=== PATIENT | male | born 1970 | race Hispanic/Latino ===

== ENCOUNTER 2018-07-07 17:54 | Emergency (ER) | payer BC ==
[2018-07-07 17:54] VITALS: BMI 31.8
[2018-07-07 18:02] VITALS: BP 143/90; PULSE 67; RESP 18; TEMP 98.3; O2SAT 97
--- NOTE | 2018-07-07 19:02 | ED PDOC ---
Arrival/HPI - General Chief Complaint: Upper Extremity Problem/Injury Time Seen by Provider: 07/07/18 18:01 Historian: Patient - History of Present Illness Narrative History of Present Illness (Text): 07/07/18 19:08 48 year old male, whose past medical history includes hypertension, who presents to the Emergency department complaining of rt bicep pain x today. Patient states he was moving a washing machine, when he felt a pop in the right bicep. Patient is able to move and extend rt arm. Patient denies any numbness, weakness, back pain, neck pain, abdominal pain, or any other complaints. PMD: Dr. Noguera Time/Duration: Prior to Arrival Symptom Onset: Gradual Activities at Onset: Light Context: Home Past Medical History - Provider Review Nursing Documentation Reviewed: Yes - Tetanus Immunization Tetanus Immunization: Unknown - Past Medical History Past Medical History: No Previous - Cardiac Hx Hypertension: Yes - Pulmonary Hx Respiratory Disorders: No - Neurological Hx Neurological Disorder: No - HEENT Hx HEENT Disorder: No - Renal Hx Renal Disorder: No - Endocrine/Metabolic Hx Endocrine Disorders: No - Hematological/Oncological Hx Blood Disorders: No - Integumentary Hx Dermatological Disorder: No - Musculoskeletal/Rheumatological Hx Musculoskeletal Disorders: No - Gastrointestinal Hx Gastrointestinal Disorders: No - Genitourinary/Gynecological Hx Genitourinary Disorders: No - Psychiatric Hx Depression: No Hx Emotional Abuse: No Hx Physical Abuse: No Hx Substance Use: No - Surgical History Hx Appendectomy: Yes - Suicidal Assessment Feels Threatened In Home Enviroment: No Family/Social History - Physician Review Nursing Documentation Reviewed: Yes Family/Social History: Unknown Family HX Smoking Status: Never Smoked Hx Alcohol Use: Yes Frequency of alcohol use: Socially Hx Substance Use: No Hx Substance Use Treatment: No Allergies/Home Meds Allergies/Adverse Reactions: Allergies No Known Allergies Allergy (Verified 07/07/18 18:01) Home Medications: Home Meds Medication Instructions Recorded Confirmed Lisinopril [Prinivil] 20 mg PO DAILY 07/07/18 07/07/18 Review of Systems - Physician Review All systems were reviewed & negative as marked: Yes - Review of Systems Constitutional: Normal Eyes: Normal ENT: Normal Respiratory: Normal. absent: SOB, Cough Cardiovascular: Normal. absent: Chest Pain Gastrointestinal: Normal. absent: Abdominal Pain, Diarrhea, Nausea, Vomiting Genitourinary Male: Normal. absent: Frequency, Hematuria Musculoskeletal: Other (rt bicep pain). absent: Back Pain, Neck Pain Skin: Normal. absent: Rash Neurological: Normal. absent: Headache, Dizziness Endocrine: Normal. absent: Polyuria, Polydipsia Hemo/Lymphatic: Normal Psychiatric: Normal Physical Exam Vital Signs Reviewed: Yes Vital Signs Temp Pulse Resp BP Pulse Ox 07/07/18 18:02 98.3 F 67 18 143/90 97 Temperature: Afebrile Blood Pressure: Normal Pulse: Regular Respiratory Rate: Normal Appearance: Positive for: Well-Appearing, Non-Toxic, Comfortable Pain Distress: None Mental Status: Positive for: Alert and Oriented X 3 - Systems Exam Head: Present: Atraumatic, Normocephalic Pupils: Present: PERRL Extroacular Muscles: Present: EOMI Conjunctiva: Present: Normal Mouth: Present: Moist Mucous Membranes Neck: Present: Normal Range of Motion Respiratory/Chest: Present: Clear to Auscultation, Good Air Exchange. No: Respiratory Distress, Accessory Muscle Use Cardiovascular: Present: Regular Rate and Rhythm, Normal S1, S2. No: Murmurs Abdomen: No: Tenderness, Distention, Peritoneal Signs Back: Present: Normal Inspection Upper Extremity: Present: Normal ROM, NORMAL PULSES, Tenderness (rt bicep), Other (pt is able to extend and flex with resistence). No: Cyanosis, Edema Lower Extremity: Present: Normal Inspection, Neurovascularly Intact. No: Edema Neurological: Present: GCS=15, CN II-XII Intact, Speech Normal, Motor Func Gross ly Intact, Normal Sensory Function Skin: Present: Warm, Dry, Normal Color. No: Rashes Psychiatric: Present: Alert, Oriented x 3, Normal Insight, Normal Concentration Medical Decision Making ED Course and Treatment: 07/07/18 19:12 Impression: 48 year old male presents to the emergency department complaining of rt bicep pain. Differential Diagnosis: Rt bicep pain r/o tear Plan: -- CT RUE -- Ibuprofen -- Xray rt elbow -- Reassess and disposition Progress Notes: XRay with no acute fracture. Pt signed out to Dr. Cooper pending CT results, reevaluation, and disposition. - RAD Interpretation Radiology Orders: 07/07/18 18:12 ELBOW RIGHT 3 VIEWS ROUTINE [RAD] Stat 07/07/18 18:13 EXT UPPER W/O CONTRAST RIGHT [CT] Stat - Medication Orders Current Medication Orders: Discontinued Medications Ibuprofen (Motrin Tab) 800 mg PO STAT STA Stop: 07/07/18 18:15 Last Admin: 07/07/18 18:42 Dose: 800 mg MAR Pain/Vitals Document 07/07/18 18:42 OCS (Rec: 07/07/18 18:43 OCS [id number]) Pain Reassessment Is This A Pain ReAssessment? Yes Sleep Is patient sleeping during reassessment? No Presence of Pain Presence of Pain Yes Pain Scale Used Protocol: PSCALES Pain Scale Used Numeric Location Left, Right or Bilateral Right Upper or Lower Upper Pain Location Body Site Arm Description Constant Intensity 6 Scale Used Numeric Aggravating Factors ADL's - Scribe Statement The provider has reviewed the documentation as recorded by the Scribe Romina Reynoso All medical record entries made by the Scribe were at my direction and personally dictated by me. I have reviewed the chart and agree that the record accurately reflects my personal performance of the history, physical exam, medical decision making, and the department course for this patient. I have also personally directed, reviewed, and agree with the discharge instructions and disposition. Disposition/Present on Arrival - Present on Arrival Any Indicators Present on Arrival: No History of DVT/PE: No History of Uncontrolled Diabetes: No Urinary Catheter: No History of Decub. Ulcer: No History Surgical Site Infection Following: None - Disposition Have Diagnosis and Disposition been Completed?: Yes Diagnosis: Biceps strain Disposition Time: 19:25 Condition: GOOD Referrals: Pam Noguera MD [Primary Care Provider] - Follow up with primary Forms: [employer] (Hebrew)
--- NOTE | 2018-07-07 19:33 | ED PDOC ---
Physical Exam Vital Signs Temp Pulse Resp BP Pulse Ox 07/07/18 18:02 98.3 F 67 18 143/90 97 - Systems Exam Upper Extremity: Present: Other (tenderness and swelling antecubital fossa). No: Cyanosis, Edema Medical Decision Making ED Course and Treatment: 07/07/18 19:30 Case endorsed to me by Dr. Salazar pending CT results, reevaluation, and disposition. 07/07/18 19:35 CT RUE reviewed, shows: Impression: Technically limited study. Bicipital tendon appears with the bicipital groove. Very limited visualization of the biceps shows no obvious mass or fluid collection. Correlation with plain radiographs and orthopedic consultation recommended. 07/07/18 19:43 case d/w dr harrison will follwo up in office on monday - RAD Interpretation Radiology Orders: 07/07/18 18:12 ELBOW RIGHT 3 VIEWS ROUTINE [RAD] Stat 07/07/18 18:13 EXT UPPER W/O CONTRAST RIGHT [CT] Stat - Medication Orders Current Medication Orders: Discontinued Medications Ibuprofen (Motrin Tab) 800 mg PO STAT STA Stop: 07/07/18 18:15 Last Admin: 07/07/18 18:42 Dose: 800 mg MAR Pain/Vitals Document 07/07/18 18:42 OCS (Rec: 07/07/18 18:43 OCS [facility] [id number]) Pain Reassessment Is This A Pain ReAssessment? Yes Sleep Is patient sleeping during reassessment? No Presence of Pain Presence of Pain Yes Pain Scale Used Protocol: PSCALES Pain Scale Used Numeric Location Left, Right or Bilateral Right Upper or Lower Upper Pain Location Body Site Arm Description Constant Intensity 6 Scale Used Numeric Aggravating Factors ADL's - Scribe Statement The provider has reviewed the documentation as recorded by the Scribe Romina Reynoso All medical record entries made by the Scribe were at my direction and personally dictated by me. I have reviewed the chart and agree that the record accurately reflects my personal performance of the history, physical exam, medical decision making, and the department course for this patient. I have also personally directed, reviewed, and agree with the discharge instructions and disposition. Disposition/Present on Arrival - Present on Arrival Any Indicators Present on Arrival: No History of DVT/PE: No History of Uncontrolled Diabetes: No Urinary Catheter: No History of Decub. Ulcer: No History Surgical Site Infection Following: None - Disposition Have Diagnosis and Disposition been Completed?: Yes Diagnosis: Biceps strain Disposition: HOME/ ROUTINE Disposition Time: 19:44 Condition: GOOD Discharge Instructions (ExitCare): Muscle Strain (DC) Referrals: Pam Noguera MD [Primary Care Provider] - Follow up with primary Luis Caraballo DO [Staff Provider] - Follow up with primary Forms: [employer] (Croatian)
--- NOTE | 2018-07-08 09:49 | RAD ---
Date of service: 07/07/2018 PROCEDURE: Radiographs of the right elbow. HISTORY: bicep pain after lifting COMPARISON: No prior. FINDINGS: BONES: Normal. No fracture. JOINTS: Normal. No osteoarthritis. SOFT TISSUES: Normal. JOINT EFFUSION: None. OTHER FINDINGS: None. IMPRESSION: Unremarkable radiographs of the right elbow.
--- NOTE | 2018-07-08 11:51 | CT ---
Date of service: 07/07/2018 PROCEDURE: CT of the right upper extremity without contrast HISTORY: bicep pain after lefting r/o tear COMPARISON: TECHNIQUE: Radiation dose: Total exam DLP = 935.19 mGy-cm. This CT exam was performed using one or more of the following dose reduction techniques: Automated exposure control, adjustment of the mA and/or kV according to patient size, and/or use of iterative reconstruction technique. FINDINGS: CT is less sensitive than MRI in the detection of distal biceps tendon tear. The biceps tendon can be seen within the bicipital groove. There is no evidence of muscular hematoma. There are no bony abnormalities seen The report concurs with the preliminary [facility] report IMPRESSION: Negative study. CT is limited in evaluation of the distal biceps tendon
== END 2018-07-07 20:00 | disposition home or self-care (01) ==
LOC: ED 17:54
DX: S46.211A Strain of muscle, fascia and tendon of other parts of biceps, right arm, initial encounter (principal); X50.0XXA Overexertion from strenuous movement or load, initial encounter; Y92.9 Unspecified place or not applicable

== ENCOUNTER 2018-07-17 05:43 | Day surgery (SDC) | payer BC ==
[2018-07-13 12:00] VITALS: BMI 41.2
[2018-07-17] MEDS ORDERED: Bupivacaine 0.5% 50 ML IJ ONE ×2 (10:08→11:10)
[2018-07-17] MEDS ORDERED: HYDROmorphone 0.5 mg/0.5 ml ISec IVP PRN (10:18)
[2018-07-17] MEDS ORDERED: Lactated Ringer's 1,000 ML IV SCH (10:30)
[2018-07-17] MEDS ORDERED: Propofol 10 mg/ml Inj (20 ML) ONE (10:35)
[2018-07-17] MEDS ORDERED: Midazolam 2 MG/2 ML VIAL ONE (10:35)
[2018-07-17] MEDS ORDERED: Succinylcholine 200 mg/10 ml Inj IV ONE (10:36)
[2018-07-17] MEDS ORDERED: Etomidate 20 mg/10ml Inj IV ONE (10:36)
[2018-07-17] MEDS ORDERED: CeFAZolin 1 gm in NS 100ml IVPB ONE (10:49)
[2018-07-17] MEDS ORDERED: Rocuronium 10 mg/ml (5 ml) ONE (10:51)
[2018-07-17] MEDS ORDERED: ePHEDrine 50 mg/ml Inj ONE (11:45)
[2018-07-17] MEDS ORDERED: Oxycodone/Acetaminophen 5/325 mg Tab PO PRN (13:01)
--- NOTE | 2018-07-17 13:05 | PCM.SURG1 ---
Surgeon's Initial Post Op Note - Surgeon's Notes Surgeon: Fabio Baltazar MD Supervisor Mill: Carolann Salguero PA-C Type of Anesthesia: General Endo Anesthesia Administered By: Dr. Roe Pre-Operative Diagnosis: right distal biceps tear Operative Findings: see full note Post-Operative Diagnosis: same Operation Performed: right open distal biceps tendon repair Specimen/Specimens Removed: none Estimated Blood Loss: EBL {In ML}: 10 Blood Products Given: N/A Drains Used: No Drains Post-Op Condition: Fair Date of Surgery/Procedure: 07/17/18 Time of Surgery/Procedure: 13:05
[2018-07-17 13:07] VITALS: O2SAT 96
[2018-07-17] MEDS: HYDROmorphone 0.5 mg/0.5 ml ISec ONE ×2 (13:28→13:55)
[2018-07-17 13:29] VITALS: PULSE 67
[2018-07-17] MEDS ORDERED: HYDROmorphone 0.5 mg/0.5 ml ISec ONE (14:06)
[2018-07-17 14:32] VITALS: BP 110/63; RESP 18; TEMP 98.9
--- NOTE | 2018-07-18 00:01 | OP ---
PROCEDURE DATE: 07/17/2018 PREOPERATIVE DIAGNOSIS: Right distal biceps tendon rupture. POSTOPERATIVE DIAGNOSIS: Right distal biceps tendon rupture. PROCEDURE: Open right distal biceps tendon repair. SURGEON: Michael Baltazar MD NET FRONT END DEVELOPER: Dr. Baltazar was assisted by Kimberly Salguero, physician resident programs assistant. Ms. Salguero was present throughout the entire case and assisted in patient positioning, retraction and wound closure. TYPE OF ANESTHESIA: General. COMPLICATIONS: None. ESTIMATED BLOOD LOSS: 10 mL. INDICATIONS FOR PROCEDURE: This is a 48-year-old gentleman who was lifting a heavy object and sustained a right elbow injury. Clinical and MRI examination consistent with a complete full-thickness tear of the distal biceps tendon. Recommendations were for open repair. The risks, benefits, and alternatives of the procedure were discussed with the patient including the nerve damage and the possibility of the rupture and informed consent was obtained. DESCRIPTION OF PROCEDURE: After surgical site was signed and verified in the perioperative holding area, the patient was taken to the operating room and placed supine on the operating room table. After administration of general anesthesia, the patient received 2 g of Ancef IV. Tourniquet was placed about the right arm. Care was taken to make sure all bony prominences and nerves were well padded and protected. The right upper extremity was prepped and draped in the usual sterile fashion. Using a C-arm image intensifier, the bicipital tuberosity on the radius was visualized and approximately 6 cm longitudinal incision was made centered over the bicipital tuberosity. Soft tissues were gently dissected. Care was taken to retract any subcutaneous nerves and the dissection was followed down to the bicipital tuberosity. A small amount of hematoma was noted and this was evacuated and irrigated. At this point, the biceps tendon was not visualized, and using blunt dissection and finger dissection, the tendon was located several centimeters proximal to the antecubital crease. Using an Allis clamp, the tendon was grasped and could be pulled down to its insertion site. Satisfied, the free end of the tendon was debrided, and using an [employer] FiberWire, the end of the tendon was whip stitched. A button was attached to the tendon, and attention was directed back to the wound. At this point, the guide pin for socket was localized using the C-arm and the guide pin was drilled. Next, the appropriate sized reamer was then used and it was drilled unicortically to form a socket. At this point, the pin was then placed across the radius to the socket and tension was applied; however, the tendon did not appear to be seated on bone. This was confirmed using the C-arm, so a second button was placed and this was deployed into the socket and seated on the far cortex of the radius. The tendon was then tensioned down. The sutures were then tensioned from the free end of the tendon recessing it into the socket. The loop was closed by tying a knot and fixation was confirmed by pulling and applying traction on the tendon which showed firm fixation. Satisfied, the one limb of the suture was then passed using a free needle through the proximal portion of the tendon and then tied securing the tendon down. At this point, again, C-arm images were taken showing the button in good position. The wound was then copiously irrigated and closed using interrupted 2-0 Vicryl suture and 3-0 nylon. A sterile dressing was applied and a posterior splint was placed. The patient was awaken from anesthesia and taken to the recovery room in stable condition. Michael Baltazar MD
--- NOTE | 2018-07-18 10:23 | RAD ---
Date of service: 07/17/2018 PROCEDURE: Fluoroscopy up to 1 hr HISTORY: RT. BICEP TENDON REPAIR COMPARISON: TECHNIQUE: Fluoroscopy up to 1 hr. 47.3 sec of fluoro time. Cumulative dose 2.70 mGy. Two images submitted FINDINGS: Small orthopedic devices are seen near the radial tuberosity. IMPRESSION: As above
== END 2018-07-17 17:00 | disposition home or self-care (01) ==
LOC: SDS 05:43
PROVIDERS: ATTEND Orthopaedic Surgery
DX: S46.211A Strain of muscle, fascia and tendon of other parts of biceps, right arm, initial encounter (principal); X50.0XXA Overexertion from strenuous movement or load, initial encounter; I10 Essential (primary) hypertension
CPT/HCPCS: 24341; 76000; C1776; J0330; J0690; J1170; J2001; J2250; J2405; J2704; J3010; J7120 ×2